=== PATIENT | male | born 1945 | race Caucasian/White ===

== ENCOUNTER 2016-11-14 07:20 | Day surgery (SDC) | payer OTHER ==
[~2016-11-14] VITALS: Ht 165.1 cm; Wt 61.0 kg
[2016-11-14] VITALS (7 sets, daily range): BP systolic 119–138; BP diastolic 60–68; PULSE 61–66; RESP 16–20; Ht 165.1 cm; Wt 61.0 kg
[~2016-11-14 07:20] MED LIST: BENA40TA54 PO; CINA90TA PO; CIPROFLOXACIN 0.3% 2.5 ML OPH OPER SCH; CYCLOPENTOLATE/PHENYLEPH 2 ML OPH OPER SCH; DICLOFENAC 0.1% 2.5 ML OPH OPER SCH; FOLI-49 PO; NIFE90TA21 PO; SEVE800T10 PO; SIMV20TA PO; TROPICAMIDE 1% 3ML OPH OPER SCH
[2016-11-14] MEDS ORDERED: SIMV20TA PO (08:27)
[2016-11-14] MEDS ORDERED: NEPH PO (08:28)
[2016-11-14] MEDS ORDERED: LORA10TA3 PO (08:28)
[2016-11-14] MEDS ORDERED: NIFE60TA7 PO (08:28)
[2016-11-14] MEDS ORDERED: NA HYALURONATE/CHONDROITIN 0.5 ML SYG LEFT EYE ONE (10:20)
[2016-11-14] MEDS ORDERED: CARBACHOL 0.01% 1.5 ML OPH INJ IO ONE (10:20)
[2016-11-14] MEDS ORDERED: DEXAMETHASONE 4 MG/ML 1 ML INJ INJ ONE (10:20)
[2016-11-14] MEDS ORDERED: CEFAZOLIN 1 GM INJ INJ ONE (10:20)
[2016-11-14] MEDS ORDERED: PROPOFOL 20 ML ONE (10:31)
[2016-11-14] MEDS ORDERED: HYDROmorphONE (0.2 MG/ML) 10ML SYG IV PRN ×3 (11:00)
[2016-11-14] MEDS ORDERED: MEPERIDINE 25 MG INJ IV PRN (11:00)
[2016-11-14] MEDS ORDERED: ONDANSETRON 4 MG INJ IV PRN (11:00)
[2016-11-14] MEDS ORDERED: OXYCODONE/ACETAMINOPHEN (5/325) TAB PO PRN ×2 (11:00)
[2016-11-14] MEDS ORDERED: DIPHENHYDRAMINE 50 MG INJ IV PRN (11:00)
[2016-11-14] MEDS ORDERED: NA HYALURONATE/CHONDROITIN 0.5 ML SYG ONE (11:08)
[2016-11-14] MEDS ORDERED: LIDOCAINE 4% (MPF) 5 ML INJ ONE (11:12)
[2016-11-14] MEDS ORDERED: GENTAMICIN 80 MG INJ ONE (11:12)
[2016-11-14] MEDS ORDERED: CARBACHOL 0.01% 1.5 ML OPH INJ ONE (11:12)
[2016-11-14] MEDS ORDERED: DEXAMETHASONE 4 MG/ML 1 ML INJ ONE (11:12)
[2016-11-14] MEDS ORDERED: EPINEPHrine 1 MG INJ ONE (11:12)
[2016-11-14] MEDS ORDERED: CEFAZOLIN 1 GM INJ ONE (11:12)
--- NOTE | 2016-11-14 11:18 | HPN ---
Date/Time of Note Date/Time of Note DATE: 11/14/16 TIME: 11:17 Interval H&P Admission Note Pt. seen H&P reviewed: No system changes MICHELLE CHAVEZ MD Nov 14, 2016 11:18
--- NOTE | 2016-11-14 11:28 | SIPON ---
Date/Time of Note Date/Time of Note DATE: 11/14/16 TIME: 11:23 Operative Report Preoperative Diagnosis cataract os Postoperative Diagnosis same Operation/Procedure Performed cataract extraction os Surgeon Michelle Chavez MD home health assistant none Anesthesia: MAC Estimated blood loss: none Transfusion Required none Specimen none Grafts/Implants posterior chamber lens implant Complications none MICHELLE CHAVEZ MD Nov 14, 2016 11:28
--- NOTE | 2016-11-14 12:53 | OPR ---
DATE OF OPERATION: 11/14/2016 PREOPERATIVE DIAGNOSIS: Cataract, left eye. POSTOPERATIVE DIAGNOSIS: Cataract, left eye. OPERATION PERFORMED: Cataract extraction with lens implant, left eye. SURGEON: Max Hudson MD ANESTHESIOLOGIST: Mina ANESTHESIA: Local standby. OPERATIVE PROCEDURE: The patient was brought to the operating room and placed on the table with an IV in place and the patient attached to an clinical informatics director. Oxygen was given via face mask. After some intravenous sedation was administered, local anesthesia was given using Xylocaine 2 percent with epinephrine, mixed with Marcaine 0.5 percent. This was given in a lid block and retrobulbar injection. The patient was then prepped and draped in the usual sterile manner. A wire lid speculum was inserted between the lids of the left eye. A Superblade was used to enter the anterior chamber at the corneoscleral limbus at the 10:30 o'clock position. A separate incision was made using a 3.0-mm keratome which entered the corneoscleral junction at the 12 o'clock position. Through this 3-mm opening, an irrigating cystotome was introduced into the anterior chamber. The chamber was filled with Viscoat and an anterior capsulotomy was performed. Balanced salt solution was then used for hydrodissection of the lens. A phacoemulsification handpiece was then brought into the field and introduced into the anterior chamber. The lens nucleus was emulsified using a deep groove and cracking the nucleus into quadrants. Following this, each quadrant was aspirated and emulsified at the pupillary margin. Please note that there was a break in the posterior capsule and some formed vitreous was present at the lips of the wound. A limited anterior vitrectomy was performed until no vitreous was present. After this was completed, the irrigation/aspiration handpiece was brought to the field, introduced into the posterior chamber, and the lens cortical material was removed. When this was completed, additional Viscoat was injected into the anterior and posterior chambers. There was noted to be sufficient posterior capsular support in order to place a posterior chamber intraocular lens and therefore it was opted to proceed along that course. The 3-mm opening had its internal lips enlarged, and then the posterior chamber intraocular lens measuring 15.0 diopters ([employer] model number [id number]) was then injected into the posterior chamber using the lens injector system. After the leading haptic was introduced into the capsular bag and the lens optic was present in the center of the eye, the injector was removed and the trailing haptic was grasped with non-toothed forceps and introduced into the capsular fold superiorly. A Sinskey hook was then used to rotate the intraocular lens so that the lips were oriented in the horizontal meridian. One 10-0 nylon suture was placed across the wound. Prior to tying, the irrigation/aspiration handpiece was reintroduced into the anterior chamber to remove the Viscoat. Miochol was instilled to constrict the pupil, and then the 10-0 nylon suture was tied. The ends were cut short and then the knot was buried. Then, 0.5 mL of dexamethasone and 0.5 mL of Ancef were injected into the sub-Tenon space in the inferior fornix. Ciloxan drops were then placed on the surface of the eye. The speculum was removed and a patch was applied. The patient then left the operating room in satisfactory condition. Dictated By: Max Hudson MD /thanh/robi /Document#: [id number] MICHELLE
== END 2016-11-14 12:08 | disposition home or self-care (01) ==
LOC: SDS 07:20
PROVIDERS: ATTEND Ophthalmology
DX: H26.9 Unspecified cataract (principal); I12.0 Hypertensive chronic kidney disease with stage 5 chronic kidney disease or end stage renal disease; N18.6 End stage renal disease; Z99.2 Dependence on renal dialysis; E78.5 Hyperlipidemia, unspecified
CPT/HCPCS: 66984; 84132; J0171; J0690; J1100; J1580; V2632; Z7512; Z7610

== ENCOUNTER 2017-01-02 08:57 | Day surgery (SDC) | END 2017-01-02 15:50 | disposition home or self-care (01) | DX: H25.11 Age-related nuclear cataract, right eye (principal); I10 Essential (primary) hypertension | CPT/HCPCS: 66984; 84132; J0690; J1100; J2370; J2405; V2632; Z7512; Z7610 ==

== ENCOUNTER 2018-05-21 06:26 | Day surgery (SDC) | payer OTHER ==
[~2018-05-21] VITALS: Ht 167.6 cm; Wt 60.0 kg
[~2018-05-21 06:26] MED LIST changes: +ALBU18HF INHALATION; -CIPROFLOXACIN 0.3% 2.5 ML OPH OPER SCH; -CYCLOPENTOLATE/PHENYLEPH 2 ML OPH OPER SCH; -DICLOFENAC 0.1% 2.5 ML OPH OPER SCH; +NEPH PO; +NIFE60TA18 PO; -NIFE90TA21 PO; -SEVE800T10 PO; -TROPICAMIDE 1% 3ML OPH OPER SCH
[2018-05-21 07:46] VITALS: Ht 167.6 cm; Wt 60.0 kg
[2018-05-21] MEDS ORDERED: LISI-471 PO (07:50)
[2018-05-21] MEDS ORDERED: SVL800C PO (07:50)
[2018-05-21] MEDS ORDERED: ASPI-903 PO (07:50)
[2018-05-21 08:03] VITALS: BP 166/66; PULSE 71; RESP 16
--- NOTE | 2018-05-21 08:46 | PREAC ---
Date/Time of Note Date/Time of Note DATE: 05/21/18 TIME: 08:42 Anesthesia Eval and Record Evaluation Time Pre-Procedure Interview DATE: 05/21/18 TIME: 08:42 Age 72 Sex male NPO: 8 hrs Preoperative diagnosis occult blood stool Planned procedure colonoscopy Past Medical History Past Medical History: Includes Cardio: HTN, Dyslipidemia, Other (aortic stenosis s/p aortic valve replacement ) Renal: ESRD on dialysis, HD last: (05/20/18) Surgery & Anesthesia Issues No known issue Meds Anticoagulation: No Beta Isha within 24 hr: No Reason Beta Isha not given: Pt. not on B-Isha Reported Medications Sevelamer Hcl* (Renagel*) 800 Mg Tablet, 800 MG PO WITH MEALS, TAB 05/21/18 Aspirin* (Aspirin* Chew) 81 Mg Tab.chew, 81 MG PO DAILY, TAB.CHEW 05/21/18 Lisinopril* (Lisinopril*) 20 Mg Tablet, 20 MG PO DAILY, #30 TAB 05/21/18 Multivit/Ca Carb/B Cmplx/Fa* (Umu-Molly*) 1 Tab Tab, 1 TAB PO DAILY, TAB 01/02/17 Simvastatin* (Zocor*) 20 Mg Tablet, 20 MG PO HS, TAB 11/23/14 Folic Acid* (Folic Acid*) 1 Mg Tablet, 1 MG PO DAILY, TAB 11/23/14 Benazepril Hcl* (Lotensin*) 40 Mg Tablet, 40 MG PO DAILY, TAB 11/23/14 Discontinued Reported Medications Albuterol Sulfate* (Ventolin HFA*) 18 Gm Hfa.aer.ad, 2 PUFF INHALATION Q6H, #1 INHALER 01/02/17 Cinacalcet* (Sensipar*) 90 Mg Tablet, 90 MG PO DAILY, TAB 01/02/17 Nifedipine* (Nifedipine ER*) 60 Mg Tablet.sa, 60 MG PO BID, TAB.SA 11/14/16 Meds reviewed: Yes Allergies Coded Allergies: No Known Allergy (Verified , 05/21/18) Allergies Reviewed: Yes Labs/Studies Labs Reviewed: Reviewed by anesthesiologist test: N/A Studies: 2D Echo Pre-procedure Exam Last vitals Vital Signs Date Temp Pulse Resp B/P (MAP) Pulse Ox O2 O2 Flow FiO2 Time Delivery Rate 05/21/18 97.9 71 16 166/66 100 Room Air 08:03 (99) Airway: Adequate mouth opening, Adequate thyromental dist Mallampati: Mallampati II Teeth: Normal Lung: Normal Heart: Normal ASA Physical Status ASA physical status: 3 Emergency: None Planned Anesthetic General/MAC: Mask Planned Pain Management Parenteral pain med Pre-operative Attestations Prior to commencing anesthesia and surgery, the patient was re-evaluated, there was verification of: *The patient's identity *The results of appropriate recent lab work and preoperative vital signs *The above evaluation not changing prior to induction *Anesthetic plan, risk benefits, alternative and complications discussed with patient/family; questions answered; patient/family understands, accepts and wishes to proceed. Perforator Operator Oil Well used VALERIANO RAZA MD May 21, 2018 08:45
[2018-05-21] MEDS ORDERED: PROPOFOL 40 ML ONE (08:50)
[2018-05-21] MEDS ORDERED: LIDOCAINE 2% (SDV) 5 ML INJ ONE (08:50)
[2018-05-21] MEDS ORDERED: ONDANSETRON 4 MG INJ IV PRN (09:00)
[2018-05-21 10:04] VITALS: BP 123/59; PULSE 61; RESP 14
[2018-05-21] MEDS ORDERED: PROPOFOL 20 ML ONE (10:11)
[2018-05-21] MEDS ORDERED: PHENYLephrine (100 MCG/ML) 10ML SYG ONE (10:11)
--- NOTE | 2018-05-21 10:11 | PAC ---
Date/Time of Note Date/Time of Note DATE: 05/21/18 TIME: 10:09 Post-Anesthesia Notes Post-Anesthesia Note Last documented vital signs Vital Signs Date Temp Pulse Resp B/P (MAP) Pulse Ox O2 O2 Flow FiO2 Time Delivery Rate 05/21/18 97.9 71 16 166/66 100 Room Air 08:03 (99) Activity: WNL Respiratory function: WNL Cardiovascular function: WNL Mental status: Baseline Pain reasonably controlled: Yes Hydration appropriate: Yes Nausea/Vomiting absent: Yes Comments BP: 123/69 HR: 64 RR: 15 T: 98 SaO2: 100% VALERIANO RAZA MD May 21, 2018 10:11
[2018-05-21 10:20] VITALS: BP 161/65; PULSE 62; RESP 14
== END 2018-05-21 15:30 | disposition home or self-care (01) ==
LOC: GIL 06:26
PROVIDERS: ATTEND Internal Medicine Gastroenterology
DX: D12.6 Benign neoplasm of colon, unspecified (principal)
CPT/HCPCS: 45380; 45385; 84132; 88305; J2370; Z7610